=== PATIENT | female | born 1960 | race Caucasian/White ===

== ENCOUNTER 2017-02-20 09:45 | Emergency (ER) | payer OTHER ==
[2017-02-20 09:56] VITALS: BP 134/80; BMI 29.0
--- NOTE | 2017-02-20 10:09 | DR.GENAD ---
HPI - PCP Primary Care Physician: EDOUARD HINKLE - HPI Comment HPI Comment: PATIENTS PCP/PA CALLED AND WANTEDHER POTAASIUM RECHECK. 6.6 LEVEL PREVIOUSLY REPORTED TO THEM. PATIENT HAVE NO COMPLAINT. - Complaint/Symptoms Chief Complaint Doctors Comments: ABNORMAL POTASSIUM, HERE FOR RECHECK. Chief Complaint:: PT CALLED BY HER MD AND TOLD TO COME TO THE ER AND THAT HER POTASSIUM IS HIGH.. Self Treatment fo Chief Complaint: PTS PA STATES " I WOULD LIKE A REPEAT POTASSIUM AND MAKE SURE THAT THIS IS NOT A FALSE READING.. - Nurses notes reviewed Nurses Notes Review: Yes - Source History Provided: Patient - Mode of Arrival Mode of Arrival: Ambulatory - Timing Onset of Chief Complaint: 02/20/17 Came on: Suddenly - Duration Duration: Since Onset Duration: Days - Severity Severity: None PMH - PMH Past Medical History: Yes Past Medical History: Hypothyroidism Past Surgical History: Yes Surgical History: Hysterectomy - Family History History of Family Medical Conditions: No - Social History Does patient currently use any type of tobacco product: No Have you used tobacco products in the last 12 months: No Type of Tobacco Use: None Does any household member use tobacco: No Do you use any recreational Drugs:: No Lives With: Family Lives Where: Home - infectious screening In the last 2 months have you had wt loss of >10#?: NO Have you had fever, night sweats or hemotysis?: No Have you traveled outside the country in the last 6 months?: No Isolation: Standard ROS - Review of Systems Constitutional: No Symptoms Reported Eyes: No Symptoms Reported ENTM: No Symptoms Reported Cardiovascular: No Symptoms Reported Gastrointestinal/Abdominal: No Symptoms Reported Neurological: No Symptoms Reported Musculoskeletal: No Symptoms Reported Integumentary: No Symptoms Reported Hematologic/Lymphatic: No Symptoms Reported Endocrine: No Symptoms Reported All Other Systems: Reviewed and Negative PE - Vital Signs Vitals: Temperature 97.7 F Pulse Rate 76 Respiratory Rate 20 Blood Pressure 134/80 O2 Sat by Pulse Oximetry 98 - General Limitations: No Limitations General Appearance: Alert - Head Head Exam: Normal Inspection - Eyes Eye exam: Normal Appearance - ENT ENT Exam: Normal External Ear Exam TM/Canal Exam: Bilateral Normal Throat Exam: Normal Inspection - Neck Neck Exam: Normal Inspection - Chest Chest Inspection: Symmetric Chest Wall Rise - Respiratory Respiratory Exam: Normal Lung Sounds Bilat Respiratory Exam: Bilateral Clear to Auscultation - Cardiovascular Cardiovascular Exam: Regular Rate, Normal Rhythm, Normal Heart Sounds - Abdominal Exam Abdominal Exam: Normal Bowel Sounds, Soft. negative: Tenderness - Extremities Extremities Exam: Normal Inspection - Back Back Exam: Normal Inspection - Neurologic Neurological Exam: Alert, Oriented X3 - Psychiatric Psychiatric Exam: Normal Affect, Normal Mood - Skin Skin Exam: Normal Color MDM - Additional Information Additional Information Obtained From: Family - Differential Diagnosis Differential Diagnosis: ABNORMAL LAB Course - Treatment Treatment: POTASSIUM RECHECK IN ED. - Education/Counseling Education/Counseling: Patient, Family Educated On: Needs for Follow Up ROR - Labs Reviewed Laboratory Results Reviewed?: Yes Result Diagrams: 02/20/17 10:05 Laboratory: Potassium 4.2 mmol/L (3.5-5.1) 02/20/17 10:05 - Diagnosis Discharge Problem: Abnormal labor - Discharge Plan Disposition: 01 HOME, SELF-CARE Condition: Stable - Follow ups/Referrals Follow ups/Referrals: JACOB GONSALES [Primary Care Provider] - 3 days - Instructions Instructions: Potassium (K) Test Additional Instructions: RETURN TO ED IF WORSE.
== END 2017-02-20 10:30 | disposition home or self-care (01) ==
LOC: ER 10:11
DX: O62.8 Other abnormalities of forces of labor (principal)
CPT/HCPCS: 36415; 84132; 99282

== ENCOUNTER → 2017-03-01 | Outpatient (CLI) | payer OTHER ==
--- NOTE | 2017-03-01 12:38 | MG ---
HISTORY: SCREENING Comparison: 08/22/2015, 08/20/2014, 06/29/2013 FINDINGS: Bilateral CC and MLO projections of the right and left breast were obtained. Heterogeneously dense fibroglandular tissue is seen to be present. No significant architectural distortion, mass or clust ered microcalcifications can be observed to suggest malignancy. No skin thickening or nipple retrac tion is appreciated. No pathological lymphadenopathy can be identified. Stable scattered benign ap pearing calcifications seen throughout both breasts. IMPRESSION: NO RADIOGRAPHIC EVIDENCE OF MALIGNANCY. ACR CATEGORY I - NEGATIVE EXAM. FOLLOW-UP EXAM 1 YEAR. Diagnostic CAD was utilized and reviewed. * 0 (ZERO) - ASSESSMENT INCOMPLETE; ADDITIONAL IMAGING IS NEEDED. * 1/ (ONE) - NEGATIVE. * 2/II (TWO) - BENIGN FINDINGS. * 3/III (THREE) - PROBABLY BENIGN FINDING; SHORT INTERVAL FOLLOW-UP SUGGESTED. * 4/IV (FOUR) - SUSPICIOUS ABNORMALITY; BIOPSY SHOULD BE CONSIDERED. * 5/V - HIGHLY SUSPICIOUS OF MALIGNANCY; BIOPSY SHOULD BE PERFORMED. A NEGATIVE X-RAY REPORT SHOULD NOT DELAY BIOPSY IF A DOMINANT OR CLINICALLY SUSPICIOUS MASS IS PRESENT; 4 TO 8 PERCENT OF CANCERS ARE NOT IDENTIFIED BY X-RAY. A NEG ATIVE REPORT MAY REINFORCE THE CLINICAL IMPRESSION. ADENOSIS AND DENSE BREASTS MAY OBSCURE AN UNDER LYING NEOPLASM. Reported By:
== END ==
LOC: RAD 08:55
PROVIDERS: ATTEND Pain Medicine Interventional Pain Medicine
DX: Z12.31 Encounter for screening mammogram for malignant neoplasm of breast (principal)
CPT/HCPCS: 77067

== ENCOUNTER → 2018-03-08 | Outpatient (CLI) | payer OTHER | LOC: RAD 10:24 | PROVIDERS: ATTEND Family Medicine | DX: Z12.31 Encounter for screening mammogram for malignant neoplasm of breast (principal) ==

== ENCOUNTER → 2018-03-16 | Outpatient (CLI) | payer OTHER ==
--- NOTE | 2018-03-16 12:54 | MG ---
HISTORY: SCREENING Comparison: Multiple mammograms dating back to August 22, 2015. FINDINGS: Bilateral CC and MLO projections of the right and left breast were obtained. Heterogeneously dense f ibroglandular tissue is seen to be present. No significant architectural distortion, mass or cluster ed microcalcifications can be observed to suggest malignancy. No skin thickening or nipple retractio n is appreciated. No pathological lymphadenopathy can be identified. Benign-appearing calcification s scattered throughout the right and left breasts appear unchanged given technique. IMPRESSION: NO RADIOGRAPHIC EVIDENCE OF MALIGNANCY. ACR CATEGORY: 2 - benign findings. FOLLOW-UP EXAM 1 YEAR. Diagnostic CAD was utilized and reviewed. * 0 (ZERO) - ASSESSMENT INCOMPLETE; ADDITIONAL IMAGING IS NEEDED. * 1/1 (ONE) - NEGATIVE. * 2/II (TWO) - BENIGN FINDINGS. * 3/III (THREE) - PROBABLY BENIGN FINDING; SHORT INTERVAL FOLLOW-UP SUGGESTED. * 4/IV (FOUR) - SUSPICIOUS ABNORMALITY; BIOPSY SHOULD BE CONSIDERED. * 5/V - HIGHLY SUSPICIOUS OF MALIGNANCY; BIOPSY SHOULD BE PERFORMED. A NEGATIVE X-RAY REPORT SHOULD NOT DELAY BIOPSY IF A DOMINANT OR CLINICALLY SUSPICIOUS MASS IS PRESENT; 4 TO 8 PERCENT OF CANCERS ARE NOT IDENTIFIED BY X-RAY. A NEGA TIVE REPORT MAY REINFORCE THE CLINICAL IMPRESSION. ADENOSIS AND DENSE BREASTS MAY OBSCURE AN UNDERLY ING NEOPLASM. Reported By:
== END ==
LOC: RAD 10:18
PROVIDERS: ATTEND Family Medicine
DX: Z12.31 Encounter for screening mammogram for malignant neoplasm of breast (principal)
CPT/HCPCS: 77067